=== PATIENT | male | born 1950 | race Caucasian/White ===

== ENCOUNTER 2024-02-09 22:47 | Emergency (ER) | payer OTHER ==
[2024-02-09] MEDS: Sodium Chloride 0.9% 10 ML Syringe FLUSH PRN (22:50)
[2024-02-09] MEDS: Aspirin 81 MG Tab.Chew PO ONE (23:15)
[2024-02-09 23:16] VITALS: BP 165/67; PULSE 60
[2024-02-09 23:31] LABS: BASOPHILS ABSOLUTE AUTO 0.1 x10-3/uL (0.0-0.3); BASOPHILS PERCENT AUTO 2.3 % (0.3-3.8); EOSINOPHILS ABSOLUTE AUTO 0.4 x10-3/uL (0.0-0.6); HEMOGLOBIN 11.9 g/dL (12.9-17.7); LYMPHOCYTES ABSOLUTE AUTO 1.3 x10-3/uL (0.5-4.5); LYMPHOCYTES PERCENT AUTO 22.5 % (15.8-45.3); MEAN CORPUSCULAR HEMOGLOBIN 28.3 pg (27.0-33.3); MEAN CORPUSCULAR HGB CONC 32.3 g/dL (28.7-35.3); MEAN CORPUSCULAR VOLUME 87.6 fL (80.8-98.7); MEAN PLATELET VOLUME 9.6 fL (6.7-11.0); MONOCYTES ABSOLUTE AUTO 0.4 x10-3/uL (0.0-1.2); MONOCYTES PERCENT AUTO 6.7 % (5.5-15.2); NEUTROPHILS ABSOLUTE AUTO 3.6 x10-3/uL (1.7-6.9); NEUTROPHILS PERCENT AUTO 61.5 % (40.3-71.8); PLATELET COUNT,PLT 177 x10(3)uL (117-477); RED BLOOD CELL COUNT 4.22 x10(6)uL (3.90-5.90); RED CELL DISTRIBUTION WIDTH 13.9 % (12.4-15.0); WHITE BLOOD CELL COUNT,WBC 5.9 x10-3/uL (3.2-10.1)
[2024-02-09 23:41] LABS: BLOOD UREA NITROGEN,BUN 22 mg/dL (7-18); BUN/CREATININE RATIO 15.7 (9-20); CALCIUM 9.1 mg/dL (8.6-10.2); CARBON DIOXIDE,CO2 27 mmol/L (21-32); CHLORIDE,CL 101 mmol/L (100-110); CREATININE 1.4 mg/dL (0.70-1.30); EST CRCL DRUG DOSING (CG) 42.84 mL/min; ESTIMATED GFR 53 mL/min (>60); GLUCOSE RANDOM 254 mg/dL (80-116); POTASSIUM,K 4.7 mmol/L (3.5-5.3); SODIUM,NA 138 mmol/L (135-145)
[2024-02-09 23:48] LABS: A/G RATIO 0.9; ALANINE AMINOTRANSFERASE,ALT 33 U/L (12-36); ALBUMIN 3.4 g/dL (3.2-4.6); ALKALINE PHOSPHATASE 152 IU/L (56-112); ASPARTATE AMNIOTRANSFERASE,AST 23 IU/L (5-25); BILIRUBIN TOTAL 0.2 mg/dL (0.1-1.3); PROTEIN TOTAL,TP 7.1 g/dL (6.0-8.0)
[2024-02-10] MEDS: Heparin Sodium 5,000 Units/ML Vial IVPUSH ONE (01:41)
[2024-02-10] MEDS: Heparin Sodium/0.45% NaCl 500 ML IV SCH (01:42)
[2024-02-10 01:45] LABS: INR 0.97 (1.00-1.24); PROTHROMBIN TIME 10.1 sec (9.0-11.1)
[2024-02-10] MEDS: Heparin Sodium 5,000 Units/ML Vial ONE (01:46)
[2024-02-10 01:49] LABS: PTT,PARTIAL THROMBOPLSTIN TIME 25.5 SECONDS (24.4-33.2)
== END 2024-02-10 02:22 ==
LOC: MERGE 22:47 → FB.ED 22:47
DX: I21.4 Non-ST elevation (NSTEMI) myocardial infarction (principal); I10 Essential (primary) hypertension; I25.10 Atherosclerotic heart disease of native coronary artery without angina pectoris; E78.00 Pure hypercholesterolemia, unspecified; J45.909 Unspecified asthma, uncomplicated; E11.9 Type 2 diabetes mellitus without complications; Z95.1 Presence of aortocoronary bypass graft; Z95.5 Presence of coronary angioplasty implant and graft; Z79.899 Other long term (current) drug therapy; Z79.84 Long term (current) use of oral hypoglycemic drugs; Z79.4 Long term (current) use of insulin; Z79.02 Long term (current) use of antithrombotics/antiplatelets; Z88.0 Allergy status to penicillin; Z88.2 Allergy status to sulfonamides
CPT/HCPCS: 36415; 71045; 80053; 83735; 84484; 85025; 85610; 85730; 93005; 96365; 99285; A9270; J1644; J3490